=== PATIENT | male | born 1960 | race Caucasian/White ===

== ENCOUNTER 2019-02-25 09:31 | Day surgery (SDC) | payer BC ==
[2019-02-21 11:21] VITALS: BMI 32.3
[~2019-02-25 09:31] MED LIST: LACTATED RINGERS 1,000 ML IV SCH; LIDOCAINE 1% 20 ML VIAL (10MG/ML) FOR IV START INTRADERMA PRN
[2019-02-25 09:51] VITALS: RESP 16; TEMP 97.6
[2019-02-25] MEDS ORDERED: PROPOFOL 10 MG/ML 20 ML VIAL IV ONE (10:54)
--- NOTE | 2019-02-25 10:57 | P.GSHP ---
History of Present Illness H&P Date: 02/25/19 Chief Complaint: Screening colonoscopy This is a 4-year-old male referred from Dr. Edin Newman. Patient will stay for screening colonoscopy. Past Medical History Past Medical History: No Reported History History of Any Multi-Drug Resistant Organisms: None Reported Past Surgical History: Orthopedic Surgery Additional Past Surgical History / Comment(s): RIGHT KNEE ARTHROSCOPIC SURGERY X 3 , COLONOSCOPY, Past Anesthesia/Blood Transfusion Reactions: No Reported Reaction Smoking Status: Never smoker - Past Family History Father Family Medical History: Cancer Additional Family Medical History / Comment(s): COLON CANCER Medications and Allergies Home Medications Medication Instructions Recorded Confirmed Type Aspirin 81 mg PO DAILY 02/21/19 02/21/19 History Allergies Allergy/AdvReac Type Severity Reaction Status Date / Time No Known Allergies Allergy Verified 02/25/19 09:42 Surgical - Exam Vital Signs Temp Pulse Resp BP Pulse Ox 97.6 F 61 16 131/70 99 02/25/19 09:49 02/25/19 09:49 02/25/19 09:49 02/25/19 09:49 02/25/19 09:49 - General well developed, well nourished, no distress - Eyes PERRL - ENT normal pinna - Neck no masses - Respiratory normal expansion - Cardiovascular Rhythm: regular - Abdomen Abdomen: soft, non tender Assessment and Plan Assessment: We'll perform screening colonoscopy.
--- NOTE | 2019-02-25 11:13 | P.OP ---
Date of Procedure: 02/25/19 Preoperative Diagnosis: Screening colonoscopy Postoperative Diagnosis: Diverticulosis Procedure(s) Performed: Colonoscopy Anesthesia: MAC Surgeon: Osbaldo Pina Pathology: none sent Condition: stable Disposition: PACU Description of Procedure: The patient's placed on the endoscopy table in the lateral position. He received IV sedation. Digital rectal exam performed which revealed no abnormalities. The flexible colonoscope was then placed patient anus and passed throughout the entire colon. The ileocecal valve was visualized. The cecum, ascending and transverse colon appeared normal. In the descending and sigmoid there is moderate diverticular changes. Scope was then brought back the rectum and this appeared normal. Scope was withdrawn for patient.
[2019-02-25 11:36] VITALS: BP 123/85; PULSE 70
== END 2019-02-25 12:00 | disposition home or self-care (01) ==
LOC: ORWHC2ENDO 09:31
PROVIDERS: ATTEND Surgery
DX: Z12.11 Encounter for screening for malignant neoplasm of colon (principal); K57.30 Diverticulosis of large intestine without perforation or abscess without bleeding; Z98.890 Other specified postprocedural states; Z79.82 Long term (current) use of aspirin; Z80.0 Family history of malignant neoplasm of digestive organs
CPT/HCPCS: J2704; G0121

== ENCOUNTER → 2021-02-26 | Outpatient (CLI) | payer BC ==
--- NOTE | 2021-02-26 15:19 | MR ---
EXAMINATION TYPE: MR shoulder LT wo con DATE OF EXAM: 02/26/2021 COMPARISON: Left shoulder pain HISTORY: Left shoulder pain TECHNIQUE: Multiplanar, multisequence imaging of the left shoulder is performed without contrast. FINDINGS: Rotator Cuff: There is a focal full-thickness tear of the supraspinatus tendon at the footplate. Supr aspinatus and infraspinatus tendinopathy is present. There is a focal full-thickness tear of the subs capularis tendon at the footplate inferiorly. Teres minor tendon is intact. Acromioclavicular Joint: Degenerative changes are present. No os acromiale. There is a small subacrom ial spur. There is trace fluid in the subacromial/subdeltoid bursa. Glenohumeral Joint: Articular cartilage is intact. No definite effusion. Labrum: The labrum appears grossly intact given limitation of non-arthrogram study. Biceps Tendon: The long head of biceps is in normal location within bicipital groove. Bone marrow signal: No focal abnormal marrow signal is appreciated. Other: No additional significant abnormality is appreciated. IMPRESSION: 1. Full-thickness tears of the subscapularis and supraspinatus tendons at the footplate with subscapu harper, supraspinatus and infraspinatus tendinopathy. 2. Degenerative changes of the acromioclavicular joint with small subacromial spur and trace fluid in the subacromial/subdeltoid bursa.
== END | disposition home or self-care (01) ==
LOC: RADMRIMAIN 10:58
PROVIDERS: ATTEND Orthopaedic Surgery
DX: M75.112 Incomplete rotator cuff tear or rupture of left shoulder, not specified as traumatic (principal); M67.814 Other specified disorders of tendon, left shoulder; M19.012 Primary osteoarthritis, left shoulder

== ENCOUNTER → 2021-04-19 | Outpatient (CLI) | payer BC ==
[2021-04-19 12:53] LABS: Basophils % (A) 0 %; Eosinophils # (A) 0.1 k/uL (0-0.7); Eosinophils % (A) 2 %; HCT 45.6 % (39.0-53.0); HGB 14.6 gm/dL (13.0-17.5); Lymphocytes % (A) 25 %; MCH 29.6 pg (25.0-35.0); MCHC 31.9 g/dL (31.0-37.0); MCV 92.7 fL (80.0-100.0); Mean Platelet Volume 6.7; Monocytes # (A) 0.3 k/uL (0-1.0); Monocytes % (A) 4 %; Neutrophils # (A) 5.3 k/uL (1.3-7.7); Neutrophils % (A) 67 %; Platelet Count 272 k/uL (150-450); RBC 4.92 m/uL (4.30-5.90); RDW 14.3 % (11.5-15.5); WBC 7.9 k/uL (3.8-10.6)
== END | disposition home or self-care (01) ==
LOC: LABPAT 11:06
PROVIDERS: ATTEND Orthopaedic Surgery
DX: Z01.818 Encounter for other preprocedural examination (principal); I45.19 Other right bundle-branch block; M75.42 Impingement syndrome of left shoulder
CPT/HCPCS: 85025; 93005

== ENCOUNTER 2021-04-29 05:56 | Day surgery (SDC) | payer BC ==
[2021-04-26 13:35] VITALS: BMI 33.9
--- NOTE | 2021-04-28 14:27 | HP ---
HISTORY AND PHYSICAL DATE OF SURGERY: 04/29/2021 Moiz Lopez is a 60-year-old patient seen with progressive left shoulder pain. We discussed options for treatment. He elected to proceed with left shoulder arthroscopy. Consent was obtained. PAST MEDICAL HISTORY: Noncontributory. PAST SURGICAL HISTORY: Right knee arthroscopy. DAILY MEDICATIONS: Tylenol. ALLERGIES: NONE. SOCIAL HISTORY: He denies tobacco use. PHYSICAL EVALUATION OF THE LEFT SHOULDER: Flexion 140 degrees, abduction 120 degrees. External rotation is 40 degrees with pain and weakness. Tenderness along the anterolateral acromion and rotator cuff insertion site. Impingement is positive at 90 degrees. Drop-arm sign is positive. Distal neurovascular exam is intact. Radiographs of the left shoulder revealed a type 2 acromion, evidence for acromioclavicular joint osteoarthritis and cystic changes of the greater tuberosity. Left shoulder MRI revealed rotator cuff tear and acromioclavicular joint osteoarthritis. IMPRESSION: 1. Left shoulder impingement with rotator cuff tear. 2. Left shoulder acromioclavicular joint osteoarthritis. PLAN: Left shoulder arthroscopy, subacromial decompression, arthroscopic rotator cuff repair, Dejon procedure and debridement. MMODL / IJN: [id number] /
[~2021-04-29 05:56] MED LIST changes: +DEXAMETHASONE SOD PHOSPHATE 4 MG/ML 1 ML VIAL IV ONE; +LIDOCAINE 1% (10MG/ML) FOR IV START INTRADERMA PRN; -LIDOCAINE 1% 20 ML VIAL (10MG/ML) FOR IV START INTRADERMA PRN; +ONDANSETRON 4 MG/2 ML VIAL IVP ONE
[2021-04-29] MEDS ORDERED: MIDAZOLAM 2 MG/2 ML VIAL IVP ONE (06:57)
[2021-04-29] MEDS ORDERED: fentaNYL (PF) 50 MCG/ML 2 ML AMP IVP ONE (06:57)
[2021-04-29] MEDS ORDERED: METOCLOPRAMIDE 5 MG/ML 2 ML VIAL IVP PRN (07:00)
[2021-04-29] MEDS ORDERED: HYDROmorphone 0.5 MG/0.5 ML SYRINGE IVP PRN (07:00)
[2021-04-29 07:14] LABS: Potassium 4.4 mmol/L (3.5-5.1)
--- NOTE | 2021-04-29 09:03 | P.OP ---
Date of Procedure: 04/29/21 Preoperative Diagnosis: Left shoulder impingement Postoperative Diagnosis: 1. Left shoulder rotator cuff tear 2. Left shoulder impingement 3. Left shoulder acromioclavicular joint osteoarthritis 4. Left shoulder partial long head biceps tendon tear Procedure(s) Performed: 1. Left shoulder arthroscopic rotator cuff repair 2. Left shoulder arthroscopic subacromial decompression 3. Left shoulder arthroscopic Dejon procedure 4. Left shoulder arthroscopic biceps tenotomy Implants: 1Arthrex 4.75 swivel lock anchor Anesthesia: GETA, regional (Interscalene block) Surgeon: Juliano Montero Surveillance Sensor Officer #1: Humberto Hurd Estimated Blood Loss (ml): 11 Pathology: none sent Condition: stable Disposition: PACU Indications for Procedure: 60-year-old patient seen with progressive left shoulder pain. After treatment options were discussed, he elected to proceed with arthroscopy Operative Findings: see description of procedure Description of Procedure: Patient underwent an interscalene block by department of anesthesia. The patient was then taken to the operative suite. The patient underwent a general anesthetic by the department of anesthesia. The patient was placed into a lateral position and secured. There was appropriate padding of the bony prominence. Left shoulder was then prepped and draped in normal sterile orthopedic fashion. We placed the extremity in 10 pounds of longitudinal traction. A posterior incision was now made for a posterior working portal site. The trocar and cannula were inserted into the glenohumeral joint. Arthroscopy was initiated. Spinal needle was now inserted anteriorly, to ascertain the anterior working portal site. An incision was now made in that area, a trocar was inserted followed by a probe. There was some partial tearing and hyperemia involving 100 biceps tendon. There were mild grade 1 chondromalacia changes of the humeral head with no osteochondral tears. The labrum was probed and it was found to be stable. I performed an arthroscopic biceps tenotomy. I probed the labrum and it was found to be stable. Instruments now removed from glenohumeral joint. Utilizing the posterior working portal site, the trocar and cannula were inserted into the subacromial space. Arthroscopy initiated. I made an incision 2 fingerbreadths lateral to the acromion. I introduced my trocar followed by my ArthroCare ablator. I now began ablating thick subacromial bursal tissue, which exposed the undersurface of the anterior acromion. There was diminished subacromial space. There was a very prominent anterior acromion. A motorized bur was introduced and a subacromial decompression was performed. I also excised some osteophytes off the inferior aspect of the distal clavicle. The AC joint was visualized and noted to be fairly arthritic. The motorized bur was introduced in the anterior portal site and a Dejon procedure was performed without difficulty, decompressing the AC joint nicely. I turned my attention to the rotator cuff. There was a 1.5 cm rotator cuff tear. I debrided the margins getting down to stable tendon tissue. I abraded the footprint with a motorized bur. With the assistance of Humberto BRIGGS I passed 3 everted mattress sutures through good bites of rotator cuff tendon. I punched the hole in the footprint area for insertion of an anchor. All 6 limbs of suture were now passed through the eyelet of a 4.75 Arthrex swivel lock anchor. I placed the eyelet into the pre-punch hole. I held it in position while Humberto BRIGGS tensioned all suture limbs and deployed the anchor with good fixation noted. All residual suture limbs were now clipped. We had good compression of the tendon along the entire footprint. Instruments now removed from the portal sites. All portal sites were approximated with nylon suture. Sterile dressings were applied followed by a shoulder sling. Humberto BRIGGS assisted in this complex case. The patient was awakened, transferred to a bed, and taken to recovery in stable condition.
[2021-04-29 09:08] VITALS: TEMP 97
--- NOTE | 2021-04-29 09:19 | P.ANPRN ---
Procedure Note - Anesthesia - Nerve Block Performed Left Interscalene Single Time Out Performed: Yes ([id number]) Date of Procedure: 04/29/21 Procedure Start Time: 06:58 Procedure Stop Time: 07:02 Location of Patient: PreOp Indication: Acute Post-Operative Pain, Requested by Surgeon Specifically requested for management of pain by DrSujatha: Juliano Montero Sedation Type: Sedate with meaningful contact maintained Preparation: Sterile Prep Position: Supine Catheter: None Needle Types: Pajunk Needle Gauge: 21 Ultrasound used to visualize needle placement: Yes Ultrasound used to observe medication spread: Yes Injectate: 0.5% Ropivacaine (see comment for volume) (30cc) Blood Aspirated: No Pain Paresthesia on Injection Noted: No Resistance on Injection: Normal Image Stored and Saved: Yes Events: Uneventful and Well Tolerated
--- NOTE | 2021-04-29 09:34 | P.ANPRN ---
Procedure Note - Anesthesia - Nerve Block Performed Right Erector Spinae Single Time Out Performed: Yes (711) Date of Procedure: 04/29/21 Procedure Start Time: 07:12 Procedure Stop Time: 07:16 Location of Patient: PreOp Indication: Acute Post-Operative Pain, Requested by Surgeon Specifically requested for management of pain by DrSujatha: Ezekiel Winchester Sedation Type: Sedate with meaningful contact maintained Preparation: Sterile Prep Position: Supine Catheter: None Needle Types: Pajunk Needle Gauge: 21 Ultrasound used to visualize needle placement: Yes Ultrasound used to observe medication spread: Yes Injectate: 0.5% Ropivacaine (see comment for volume) (30cc) Blood Aspirated: No Pain Paresthesia on Injection Noted: No Resistance on Injection: Normal Image Stored and Saved: Yes Events: Uneventful and Well Tolerated
[2021-04-29 09:46] VITALS: RESP 16
[2021-04-29 10:00] VITALS: PULSE 70
[2021-04-29 10:19] VITALS: BP 127/78
== END 2021-04-29 10:37 | disposition home or self-care (01) ==
LOC: OR 05:56
PROVIDERS: ATTEND Orthopaedic Surgery
DX: S46.112A Strain of muscle, fascia and tendon of long head of biceps, left arm, initial encounter (principal); M75.102 Unspecified rotator cuff tear or rupture of left shoulder, not specified as traumatic; M25.812 Other specified joint disorders, left shoulder; M19.012 Primary osteoarthritis, left shoulder
CPT/HCPCS: 29827; 29828; 29826; 64415; 76942; 80051; C1713; J2250; J1100; J2765; J0690; J2405; J3010

== ENCOUNTER → 2021-09-15 | Outpatient (CLI) | payer BC ==
--- NOTE | 2021-09-16 03:40 | MR ---
EXAMINATION TYPE: MR knee LT wo con DATE OF EXAM: 09/15/2021 COMPARISON: None HISTORY: Left knee pain, and painful kneecap for 3 months. Multiplanar multiecho imaging of the left knee with no contrast. The anterior and posterior cruciate ligaments are intact. There is mild knee joint effusion. There is subcutaneous edema anterior to the patella. The collateral ligaments are intact. There is extensive tear in the posterior horn of the medial meniscus extending to the inferior surface. The lateral meni scus appears intact. There is no evidence of a fracture. No focal bone destruction. No significant knee joint space narrow ing. IMPRESSION: Large complex tear of the posterior horn medial meniscus. No evidence of ligamentous tear. Knee joint effusion and subcutaneous edema.
== END | disposition home or self-care (01) ==
LOC: RADMRIMAIN 18:56
PROVIDERS: ATTEND Orthopaedic Surgery
DX: M23.322 Other meniscus derangements, posterior horn of medial meniscus, left knee (principal)

== ENCOUNTER → 2021-10-07 | Outpatient (CLI) | payer BC ==
[2021-10-07 22:31] LABS: Basophils # (A) 0.03 X 10*3/uL (0.00-0.10); Basophils % (A) 0.4 %; Eosinophils % (A) 1.2 %; HCT 44.9 % (39.6-50.0); HGB 14.5 g/dL (13.0-17.0); Immature Grans, Automated 0.4 %; Lymphocytes # (A) 2.62 X 10*3/uL (0.90-5.00); Lymphocytes % (A) 31.7 %; MCH 29.6 pg (27.0-32.0); MCHC 32.3 g/dL (32.0-37.0); MCV 91.6 fL (80.0-97.0); Mean Platelet Volume 9.6 fL (9.5-12.2); Monocytes # (A) 0.76 X 10*3/uL (0.20-1.00); Monocytes % (A) 9.2 %; NRBC Per 100 WBC 0 /100 WBCS (0.0-0.0); Neutrophils # (A) 4.73 X 10*3/uL (1.80-7.70); Neutrophils % (A) 57.1 %; Platelet Count 256 X 10*3/uL (140-440); RDW 13.9 % (11.5-14.5); WBC 8.27 X 10*3/uL (4.50-10.00)
[2021-10-07 23:03] LABS: Anion Gap 11.4 mmol/L (10.00-18.00); Carbon Dioxide 26.6 mmol/L (20.0-27.5); Potassium 3.9 mmol/L (3.5-5.5)
== END | disposition home or self-care (01) ==
LOC: LABPAT 16:32
PROVIDERS: ATTEND Orthopaedic Surgery
DX: Z01.812 Encounter for preprocedural laboratory examination (principal); M23.92 Unspecified internal derangement of left knee
CPT/HCPCS: 80051; 85025

== ENCOUNTER 2021-10-21 12:08 | Day surgery (SDC) | payer BC ==
[2021-10-19 15:31] VITALS: BMI 33.9
--- NOTE | 2021-10-20 14:35 | HP ---
HISTORY AND PHYSICAL REASON FOR ADMISSION: Surgery scheduled for 10/21/2021 Moiz Lopez is a 61-year-old gentleman seen with progressive left knee pain. We discussed options for treatment. He elected to proceed with left knee arthroscopy. Consent is obtained. PAST MEDICAL HISTORY: Noncontributory. PAST SURGICAL HISTORY: Right knee arthroscopy, left shoulder arthroscopy. MEDICATIONS: Naprosyn. ALLERGIES: None. SOCIAL HISTORY: Denies tobacco use. PHYSICAL EVALUATION OF THE LEFT KNEE: Range of motion zero to 130. Mild effusion. Tenderness, medial and lateral joint lines. Positive medial Renato's. Positive lateral Rentao's. Ligaments stable. Hip rotation without pain. Distal neurovascular exam intact. RADIOGRAPHS: Left knee radiographs revealed some osteoarthritic changes. Left knee MRI revealed a medial meniscal tear. IMPRESSION: Internal derangement of left knee with medial meniscal tear. PLAN: Left knee arthroscopy with partial medial meniscectomy and debridement. Surgery 10/21/2021. MMODL / IJN: [id number] /
[~2021-10-21 12:08] MED LIST changes: -DEXAMETHASONE SOD PHOSPHATE 4 MG/ML 1 ML VIAL IV ONE; -LIDOCAINE 1% (10MG/ML) FOR IV START INTRADERMA PRN; -ONDANSETRON 4 MG/2 ML VIAL IVP ONE
[2021-10-21] MEDS ORDERED: ONDANSETRON 4 MG/2 ML VIAL ONE (12:40)
[2021-10-21] MEDS ORDERED: LACTATED RINGERS 1,000 ML IV ONE (12:43)
[2021-10-21] MEDS ORDERED: DEXAMETHASONE SOD PHOSPHATE 4 MG/ML 1 ML VIAL IV ONE (12:44)
[2021-10-21] MEDS ORDERED: HYDROmorphone (PF) 1 MG/ML ONE (14:11)
[2021-10-21] MEDS ORDERED: PROPOFOL 10 MG/ML 20 ML VIAL IV ONE (14:11)
[2021-10-21] MEDS ORDERED: MIDAZOLAM 2 MG/2 ML VIAL ONE (14:11)
[2021-10-21] MEDS ORDERED: LIDOCAINE 2% INJ 20 MG/ML (2 ML VIAL) ONE (14:11)
[2021-10-21] MEDS ORDERED: fentaNYL (PF) 50 MCG/ML 2 ML AMP ONE (14:11)
[2021-10-21] MEDS ORDERED: BUPIVACAIN-EPI 0.25%-1:200,000 30 ML VIAL INTRAARTIC ONE ×2 (14:35→14:51)
--- NOTE | 2021-10-21 15:08 | P.OP ---
Date of Procedure: 10/21/21 Preoperative Diagnosis: Internal derangement left knee Postoperative Diagnosis: 1. Tear medial and lateral meniscus left knee 2. Grade 4 chondromalacia femoral sulcus left knee 3. Reactive synovitis medial, lateral and suprapatellar compartments left knee Procedure(s) Performed: 1. Arthroscopic partial medial and lateral meniscectomy left knee 2. Arthroscopic microfracture femoral sulcus left knee 3. Arthroscopic partial synovectomy medial, lateral and suprapatellar compartments left knee Anesthesia: ROMANAA, local Surgeon: Juliano Montero Estimated Blood Loss (ml): 7 Pathology: none sent Condition: stable Disposition: PACU Indications for Procedure: 61-year-old patient seen with progressive left knee pain. After treatment options were discussed with him, he elected to proceed with arthroscopy. Operative Findings: See description of procedure Description of Procedure: Patient was taken to the operative suite. Patient underwent a general anesthetic by the department of anesthesia. Patient was given preoperative antibiotics. The left lower extremity was placed in a well-padded arthroscopic leg gar. The left leg was prepped and draped in the normal sterile orthopedic fashion. A lateral parapatellar and suprapatellar incision was made. Trochars were inserted. Arthroscopy was initiated. Suprapatellar pouch revealed diffuse thick reactive synovitis. The patellofemoral joint appeared to articulate congruently. There was grade 2 chondromalacia of the patella and grade 4 chondromalacia of the femoral sulcus with areas of exposed bone being present. The scope was guided into the medial gutter. No loose bodies or plica were identified. The scope was then guided into the medial compartment. A medial parapatellar incision was made. Trocar inserted followed by probe. There was a complex tear involving the posterior horn of the medial meniscus. There were grade 1 chondromalacia changes involving the medial femoral condyle and tibial plateau. There was some thick reactive synovitis anteriorly. I performed a partial medial meniscectomy getting down to stable meniscal tissue. I performed a partial synovectomy. The shaver was removed. The residual meniscus was probed and was found to be stable. There was good decompression of synovitis. Scope and probe were then guided into the intercondylar notch. Cruciates were identified, probed and found to be stable. The scope and probe were then guided into lateral compartment. There was a radial tear posterior horn lateral meniscus. There was thick reactive synovitis anteriorly. I performed a partial lateral meniscectomy getting down to stable meniscal tissue. I performed a partial synovectomy. The residual meniscus was stable. There was good decompression of synovitis. The scope was in guided back into the supr apatellar compartment. I introduced a motorized shaver into the suprapatellar compartment. I debrided some piecemeal fragments of meniscus I encountered. I performed a partial synovectomy. I performed a chondroplasty of the femoral sulcus getting down to stable osteochondral tissue. I again noted an area of exposed bone measuring 1 x 2 cm. I introduced a microfracture awl. I performed a microfracture to the exposed bone area of the femoral sulcus penetrating the bone with resultant bleeding at the microfracture site. The residual osteochondral surface was again probed and was found to be stable. Instruments were now removed from the joint. The joint was infiltrated with .25% Marcaine. Steri-Strips were applied to the portal sites. Sterile dressings were applied. The patient was placed into a STEFANIA hose. No tourniquet was utilized. The patient was awakened, transferred to a bed and taken to recovery stable satisfactory condition.
[2021-10-21 15:12] VITALS: TEMP 96.9
[2021-10-21 16:03] VITALS: RESP 16
[2021-10-21 16:53] VITALS: BP 127/75; PULSE 69
== END 2021-10-21 16:54 | disposition home or self-care (01) ==
LOC: OR 12:08
PROVIDERS: ATTEND Orthopaedic Surgery
DX: M23.222 Derangement of posterior horn of medial meniscus due to old tear or injury, left knee (principal); M23.252 Derangement of posterior horn of lateral meniscus due to old tear or injury, left knee; M65.9 Synovitis and tenosynovitis, unspecified; M22.42 Chondromalacia patellae, left knee; M17.12 Unilateral primary osteoarthritis, left knee; K21.9 Gastro-esophageal reflux disease without esophagitis; Z79.899 Other long term (current) drug therapy; Z80.0 Family history of malignant neoplasm of digestive organs; Z80.8 Family history of malignant neoplasm of other organs or systems
CPT/HCPCS: 29880; 29876; J2250; J1100; J0690; J2405; J3010; J1170; J2704; J2001

== ENCOUNTER → 2022-03-17 | Outpatient (CLI) | payer BC ==
--- NOTE | 2022-03-17 10:34 | CA ---
Exercise Stress Test Report Name: Moiz Lopez Exam Date: 03/17/2022 08:56 Exam Location: [place] Stress Ht (in): 66 Wt (lb): 206 BSA: 2.03 Ordering Phys: Edin Falcon DO Referring Phys: Edin Falcon DO Technologist: Ankit Bee Age: 61 Gender: M : 1960 Procedure CPT: Indications: I25.10 ATHSCL HEART DISEASE OF [place] CORONARY ART ICD-10 Codes: Patient History: Medications: PEPCID, SIMBALTA, NAPROXIN Meds past 24 hrs: Pretest Chest Pain: STRESS TEST Sedrick Protocol Exercise Duration (min:sec): 09:[address] Depressions (mm): Angina Score: Feliciano Score: Resting HR (bpm): 52 Peak HR (bpm): 134 Resting BP (mmHg): 146 / 80 Peak BP (mmHg): 203 / 71 MPHR: 157 Target HR: 133 % MPHR: 85 METS: 11.4 Total Dose: Peak Dose: Atropine: Double Product: 18540 BP Response: Stress Termination: Reached target heart rate Stress Symptoms: SHORT OF BREATH Stress Summary: ECG ANALYSIS Resting ECG: Stress ECG: CONCLUSIONS Baseline EKG revealed normal sinus rhythm with minor right ventricular conduction delay. Patient walked on a standard Sedrick protocol for 9 minutes 32 seconds and achieved a maximum heart rate of 134 bpm which is 85% of predicted maximal. Peak blood pressure was 203/71. Patient did not have any angina he did develop some shortness of breath and fatigue. By EKG criteria this is a negative stress test with fair exercise capacity. Dr. Alexx Santillan MD (Electronically Signed) Final Date: 17 March 2022 10:33
== END | disposition home or self-care (01) ==
LOC: RADNMMAIN 08:05
PROVIDERS: ATTEND Family Medicine
DX: I25.10 Atherosclerotic heart disease of native coronary artery without angina pectoris (principal); I45.9 Conduction disorder, unspecified
CPT/HCPCS: 93017